=== PATIENT | female | born 1980 | race Caucasian/White ===

== ENCOUNTER → 2020-06-19 | Outpatient (CLI) | payer OTHER | LOC: MC.RAD 16:30 | DX: Z12.31 Encounter for screening mammogram for malignant neoplasm of breast (principal) ==

== ENCOUNTER 2022-03-02 20:58 | Emergency (ER) | payer OTHER ==
[~2022-03-02] VITALS: Ht 157.5 cm; Wt 70.5 kg
[2022-03-02 21:04] VITALS: TEMP 97.5
[2022-03-02] MEDS ORDERED: CLEOCIN HCL300 MG PO (21:49)
[2022-03-02 22:14] VITALS: BP 122/78; PULSE 76
== END 2022-03-02 22:15 | disposition home or self-care (01) ==
LOC: COL.ER 20:58
DX: J36 Peritonsillar abscess (principal); Z28.310 Unvaccinated for COVID-19
CPT/HCPCS: J1100

== ENCOUNTER → 2022-03-02 | Outpatient (CLI) | payer OTHER ==
[~2022-03-02] MED LIST: CLEOCIN HCL300 MG PO
== END ==
LOC: MC.RAD 11:29
DX: Z12.31 Encounter for screening mammogram for malignant neoplasm of breast (principal); N64.89 Other specified disorders of breast